=== PATIENT | female | born 1935 | race Caucasian/White ===

== ENCOUNTER 2023-10-09 20:58 | Inpatient (IN) | payer MEDICARE, SELFPAY ==
[2023-10-09 17:08] VITALS: BP 107/68
[2023-10-09 17:35] LABS: % Basophils 0.7 % (0-2); % Eosinophils 0.3 % (0-6); % Immature Granulocytes 0.4 % (0-0.5); % Lymphocytes 12.1 % (20.5-51.1); % Monocytes 8.4 % (1.7-9.3); % Neutrophils 78.1 % (42.2-75.2); Absolute Basophils 0.1 10^3/uL (0-0.2); Absolute Lymphocytes 1.2 10^3/uL (1.2-3.4); Absolute Monocytes 0.8 10^3/uL (0.1-0.6); Absolute Neutrophils 7.6 10^3/uL (1.4-6.5); Hematocrit 39.9 % (37.0-47.0); Mean Corp Hgb Conc. 35.1 g/dL (33.0-37.0); Mean Corpuscular Hgb 30.4 pg (27.0-31.0); Mean Corpuscular Volume 86.6 fL (81.0-99.0); Mean Platelet Volume 10.2 fL (7.4-10.4); Nucleated Red Blood Cells % 0 %; Platelet Count 264 10^3/uL (130-400); Red Blood Cell Count 4.61 10^6/uL (4.20-5.40); Red Cell Dist. Width 13.6 % (11.5-14.5); White Blood Cell Count 9.8 10^3/uL (4.8-10.8)
[2023-10-09 18:02] LABS: ALT (SGPT) 17 U/L (0-35); AST (SGOT) 19 U/L (14-36); Albumin 3.6 g/dl (3.5-5.0); Alkaline Phosphatase 68 U/L (38-126); Blood Urea Nitrogen 38 mg/dl (7-17); Calcium 9.6 mg/dl (8.4-10.2); Carbon Dioxide 22 mmol/L (22-30); Chloride 102 mmol/L (98-107); Glucose 208 mg/dl (70-99); Potassium 4.5 mmol/L (3.5-5.1); Sodium 130 mmol/L (135-145); Total Bilirubin 0.6 mg/dl (0.2-1.3); Total Protein 5.8 g/dl (6.3-8.2); eGFR 30.64
[2023-10-09 18:57] VITALS: BP 117/56
[2023-10-09 19:02] LABS: Urine Albumin 2+ (Neg - Trace); Urine Bilirubin Negative (Negative); Urine Character Slightly Cloudy (Clear); Urine Color Yellow; Urine Glucose Negative (Negative); Urine Ketone Negative (Negative); Urine Leukocyte 2+ (Negative); Urine Nitrite Negative (Negative); Urine Occult Blood 3+ (Negative); Urine Urobilinogen Negative (Neg - 1+)
[2023-10-09 19:13] LABS: Urine Squamous Cell 16-20 /LPF (Few)
[2023-10-09 19:14] LABS: Urine Bacteria Many (Negative); Urine White Cell 90-100 /HPF (0-5)
--- NOTE | 2023-10-09 19:53 | ED.GENMED ---
History of Present Illness
General
Chief Complaint: Change in Mental Status
Time Seen by Provider: 10/09/23 18:34
Travel History
Have you had any contact with someone who has COVID-19?: No
Do you have any symptoms of coronavirus? Fever > 100 degrees, chills, cough, shortness of breath, sore throat, loss of taste or smell, muscle aches, or headache?: No
History of Present Illness
History of Present Illness:
88-year-old female presents the emergency department with her daughters for evaluation of intermittent bouts of confusion and worsening urinary incontinence. Patient does wear depends but does not frequently change them due to frequency of
accidents. Patient denies any acute complaints and does not want to be in the hospital.
Past History
Past History
ED Past Medical History: HTN, Hypercholesterolemia, NIDDM and SD
ED Past Surgical History: Appendectomy, Orthopedic (Left leg surgery) and Other (Right-sided nephrectomy)
Social History
Tobacco: Non-smoker
Alcohol: None
Drug: None
Personal:
Living: alone
Family History
Family History: Other (reviewed and noncontributory)
Review of Systems
Review of Systems
Allergies reviewed?: Yes
All Other Systems: ROS reviewed and negative except as documented in HPI and ROS
Phy Exam
Physical Exam
Physical Exam:
GEN: Well appearing, NAD, WDWN
HEENT: Oral mucosa moist, no scleral icterus
Cardiac: Regular rate
Lung: No respiratory distress, no tachypnea
MSK: No gross deformity or injuries
Skin: Good color, no pallor or jaundice, no rashes
Neuro: AO x3, moves all extremities freely
Psych: Calm, cooperative
Course
Orders/Labs/Results
Orders:
Orders
10/09/23 17:29
CMP [Comprehensive Metabolic Panel] Urgent
Complete Blood Count/With Diff Urgent
10/09/23 18:35
Straight cath- Treatment ONCE
10/09/23 18:56
Urinalysis Reflex To Culture Urgent
Date Specimen was Collected: 10/09/23
Time Specimen was Collected: 18:48
Urine Microscopic Reflex Cult Urgent
Urine Culture Urgent
CARL Source: U
Specimen Description:
Date Specimen was Collected: 10/09/23
Time Specimen was Collected: 18:48
10/09/23 19:39
0.9% Sodium Chloride 1000 ml [Nss] 1,000 ml IV BOLUS
CefTRIAXone [Rocephin] 1,000 mg IV NOW STA
10/09/23 20:07
Admit/Transfer Patient As Directed
Co-Sign Provider:
Level of Care: Inpatient admission
Assign to:: Medical/Surgical
Physician / Group: lizeth
Diagnosis: uti, adelfo
Reason for Hospitalization: uti, adelfo
Expected length of stay greater than two midnights?: Yes
ELOS- Estimated Length of Stay in days: 2
I certify the patient meets the requirements for IP care: Yes
Code Status As Directed
Resuscitation Status: Do not resuscitate
Reached after discussion with pt or family/Healthcare POA: Yes
DNR Bracelet Application ONCE
Abnormal Lab Results
10/09/23 10/09/23
17:29 18:56
Absolute Neuts (auto) 7.6 H 10^3/uL
(1.4-6.5)
Absolute Monos (auto) 0.8 H 10^3/uL
(0.1-0.6)
Neutrophils % 78.1 H %
(42.2-75.2)
Lymphocytes % 12.1 L %
(20.5-51.1)
Sodium 130 L mmol/L
(135-145)
BUN 38 H mg/dl
(7-17)
Creatinine 1.6 H mg/dL
(0.6-1.0)
Glucose 208 H mg/dl
(70-99)
Total Protein 5.8 L g/dl
(6.3-8.2)
Ur Occult Blood Reflex 3+ A
(Negative)
Leukocyte Esterase Rfl 2+ A
(Negative)
Urine RBC 11-15 A /HPF
(0-2)
Urine WBC (Reflex) 90-100 A /HPF
(0-5)
Urine Bacteria (Reflex) Many A
(Negative)
Urine Albumin (Reflex) 2+ A
(Neg - Trace)
10/09/23 17:29
10/09/23 17:29
Vital Signs
Initial and Last Documented VS:
Initial Vital Signs
Temp Pulse Resp BP Pulse Ox
97.7 F 68 16 107/68 100
10/09/23 17:08 10/09/23 17:08 10/09/23 17:08 10/09/23 17:08 10/09/23 17:08
Last Documented Vital Signs
Temp Pulse Resp BP Pulse Ox
98.2 F 83 16 117/56 95
10/09/23 18:57 10/09/23 18:57 10/09/23 17:08 10/09/23 18:57 10/09/23 18:57
MDM/Problems Addressed
MDM/Problems Addressed:
Patient appears clinically well however she has evidence for dehydration given acute kidney injury, given the associated UTI we will treat this as an acute encephalopathy, will admit for IV antibiotics and IV fluids. No indication for imaging
*Critical Care Note
Total Time (30-74mins, 75-104mins- exclusive of procedures): Not Applicable
ED Attending Note
-
Portions of this chart may have been created with voice recognition software.� Occasional wrong word or��sound alike� substitutions may have occurred due to the inherent limitations of voice recognition software.
Discharge Plan
Departure
Patient Disposition: Admit
Date of Disposition: 10/09/23
Time of Disposition: 19:53
Presentation/result/management discussed w/ accepting MD/DO: Hospitalist
Discharge Problem:
Acute UTI, Acute kidney injury
Prescriptions:
No Action
metoprolol succinate 50 mg tablet extended release 24 hr
50 mg PO HS
lisinopril 20 mg tablet
20 mg PO DAILY
clopidogrel 75 mg tablet
75 mg PO HS
amlodipine 5 mg tablet
5 mg PO DAILY
simvastatin 40 mg tablet
40 mg PO HS
levothyroxine 75 mcg tablet
75 mcg PO DAILY
glimepiride 4 mg Tablet
4 mg PO DAILY
Referrals:
Juliocesar Espino MD [Family Provider] -
Interventions
Interventions:
*General Assessment Last Done: 10/09/23 20:00
*ED COVID-19 Vaccine History Last Done: 10/09/23 17:08
ED- Neurological Assessment Last Done: 10/09/23 19:44
Discharge Date and Time
Print Language: MOROCCAN
[2023-10-09] MEDS: NSS 1000 IV ×2 (20:01→22:45)
[2023-10-09] MEDS: ROCEPHIN 1000 MG IV (20:01)
--- NOTE | 2023-10-09 20:10 | HPS.HSE ---
Family Physician
-
Family Physician: Juliocesar Espino
Chief Complaint
-
Allergies
Allergy/AdvReac Type Severity Reaction Status Date / Time
No Known Allergies Allergy Verified 10/09/23 20:00
Home Medications
amlodipine 5 mg tablet 5 mg PO DAILY 12/05/21
clopidogrel 75 mg tablet 75 mg PO HS 12/05/21
levothyroxine 75 mcg tablet 75 mcg PO DAILY 12/05/21
lisinopril 20 mg tablet 20 mg PO DAILY 12/05/21
metoprolol succinate 50 mg tablet,extended release 24 hr 50 mg PO HS 12/05/21
simvastatin 40 mg tablet 40 mg PO HS 12/05/21
glimepiride 4 mg tablet 4 mg PO DAILY 10/09/23
History of Present Illness
88-year-old female past medical history of chronic diarrhea suspected IBS, coronary artery disease, hypertension, hypercholesteremia, diabetes, presenting with waxing and waning confusion and agitation for the past month. She has been having cloudy
urine and increased urinary frequency for the past few weeks. No abdominal pain or nausea or vomiting. She has chronic diarrhea sometimes up to 4 times a day which is watery which was thought to be due to IBS and she had constipation in the past.
She has not been eating well recently.
Smokes 6 cigarettes a day. Denies alcohol use.
Medical History
Past Medical History
Past Medical History: Reports Other (chronic diarrhea suspected IBS, coronary artery disease, hypertension, hypercholesteremia, diabetes,)
Past Surgical History: Reports Other ((Appendectomy, Orthopedic (Left leg surgery) and Other (Right-sided nephrectomy)))
Social History
Tobacco: Smoker
Alcohol: None
Drug: None
Family History
Family History: Not pertinent
Allergies / Home Medications
Allergies reflects when Allergies were last updated in [employer].
Home Medications with original date entered in [employer]
Allergy/Medication List:
Allergies
Allergy/AdvReac Type Severity Reaction Status Date / Time
No Known Allergies Allergy Verified 10/09/23 20:00
Home Medications
amlodipine 5 mg tablet 5 mg PO DAILY 12/05/21
clopidogrel 75 mg tablet 75 mg PO HS 12/05/21
levothyroxine 75 mcg tablet 75 mcg PO DAILY 12/05/21
lisinopril 20 mg tablet 20 mg PO DAILY 12/05/21
metoprolol succinate 50 mg tablet,extended release 24 hr 50 mg PO HS 12/05/21
simvastatin 40 mg tablet 40 mg PO HS 12/05/21
glimepiride 4 mg tablet 4 mg PO DAILY 10/09/23
Review of Systems
-
History Source: Patient
A 12 point ROS was completed and negative except as noted: Yes
Constitutional: Reports No Symptoms
EENT: Reports No Symptoms
Respiratory: Reports No Symptoms
Cardiac: Reports No Symptoms
Abdomen/GI: Reports See HPI
: Reports See HPI
Musculoskeletal: Reports No Symptoms
Skin: Reports No Symptoms
Neurological: Reports No Symptoms
Endocrine: Reports No Symptoms
Hematologic/Lymphatic: Reports No Symptoms
Psych: Reports No Symptoms
Physical Exam
Vital Signs
Vital Signs
Temp Pulse Resp BP Pulse Ox
98.2 F 83 16 117/56 95
10/09/23 18:57 10/09/23 18:57 10/09/23 17:08 10/09/23 18:57 10/09/23 18:57
Physical Exam
General: Well Developed, Well Nourished and No Apparent Distress
HEENT: NormoCephalic, Moist mucous membranes and Atraumatic
Respiratory: Clear
Cardiac: S1/S2 and Regular Rhythm; No Murmur or Rub
GI: Soft, Non Tender, Non Distended and Normal Bowel Sounds; No Organomegaly
Rectal: Deferred by Provider
Musculoskeletal: No Clubbing, No Cyanosis and No Edema
Skin: No Rash
Neuro: Nonfocal/grossly intact
Laboratory Results
-
10/09/23 17:29
10/09/23 17:29
Laboratory Results
Total Bilirubin 0.6 mg/dl (0.2-1.3) 10/09/23 17:29
AST 19 U/L (14-36) 10/09/23 17:29
ALT 17 U/L (0-35) 10/09/23 17:29
Alkaline Phosphatase 68 U/L (38-126) 10/09/23 17:29
Data Reviewed
-
Lab Data: Labs Reviewed by me
Old Records: Reviewed
Impression/Plan
-
IMPRESSION:
PLAN:
# Metabolic encephalopathy secondary to urinary tract infection
-Urine culture
-Ceftriaxone
# Acute kidney injury prerenal
# History of right-sided nephrectomy
-IV fluids
-Hold lisinopril
# Hyponatremia secondary to decreased p.o. intake
-Monitor with IV fluids
# Chronic diarrhea suspected secondary to IBS
-No diarrhea today
-Imodium as needed
Coronary artery disease
-Continue Plavix
Essential hypertension
-Continue amlodipine
-Continue metoprolol
Type 2 diabetes
-Hold glimepiride
-Insulin sliding scale
Hypercholesterolemia
-Continue statin
Hypothyroidism
-Continue levothyroxine
Active smoker
DNR/DNI
DVT prophylaxis heparin
Regular diet
[2023-10-09 22:08] VITALS: BP 120/81; BMI 19.8
[2023-10-09] MEDS: TOPROL XL 50 MG PO (22:45)
[2023-10-09] MEDS: PLAVIX 75 MG PO (22:45)
--- NOTE | 2023-10-09 22:51 | PTCARENOTE ---
received pt from ED via stretcher. Pt AAOx3, forgetful, no complaints of pain at this time. VSS. Oriented pt to floor, call fierro within reach
[2023-10-10] MEDS: SYNTHROID 75 MCG PO (04:00)
[2023-10-10 07:49] LABS: % Basophils 0.4 % (0-2); % Eosinophils 0.6 % (0-6); % Immature Granulocytes 0.3 % (0-0.5); % Monocytes 9.8 % (1.7-9.3); % Neutrophils 79.9 % (42.2-75.2); Absolute Basophils 0.1 10^3/uL (0-0.2); Absolute Eosinophils 0.1 10^3/uL (0-0.7); Absolute Lymphocytes 1.1 10^3/uL (1.2-3.4); Absolute Monocytes 1.2 10^3/uL (0.1-0.6); Absolute Neutrophils 9.4 10^3/uL (1.4-6.5); Hemoglobin 13.6 g/dL (12.0-16.0); Mean Corp Hgb Conc. 32.4 g/dL (33.0-37.0); Mean Corpuscular Hgb 29.7 pg (27.0-31.0); Mean Corpuscular Volume 91.7 fL (81.0-99.0); Mean Platelet Volume 10.5 fL (7.4-10.4); Nucleated Red Blood Cells % 0 %; Platelet Count 253 10^3/uL (130-400); Red Blood Cell Count 4.58 10^6/uL (4.20-5.40); Red Cell Dist. Width 13.8 % (11.5-14.5); White Blood Cell Count 11.7 10^3/uL (4.8-10.8)
[2023-10-10 08:06] LABS: Glucose - Point of Care 107 mg/dl (70-99)
[2023-10-10 08:27] LABS: ALT (SGPT) 17 U/L (0-35); AST (SGOT) 23 U/L (14-36); Albumin 3.5 g/dl (3.5-5.0); Alkaline Phosphatase 72 U/L (38-126); Blood Urea Nitrogen 31 mg/dl (7-17); Calcium 9.3 mg/dl (8.4-10.2); Carbon Dioxide 19 mmol/L (22-30); Chloride 107 mmol/L (98-107); Estimated Creatinine Clearance 25 ml/min; Glucose 91 mg/dl (70-99); Potassium 3.7 mmol/L (3.5-5.1); Sodium 136 mmol/L (135-145); Total Bilirubin 0.5 mg/dl (0.2-1.3); Total Protein 5.6 g/dl (6.3-8.2); eGFR 43.27
[2023-10-10 08:32] LABS: Glycohemoglobin (HgbA1c) 6.5 % (4.0-5.6)
[2023-10-10] MEDS: NOVOLOG FLEXPEN-LOW RESISTANCE SC (08:33)
[2023-10-10] MEDS: NSS 1000 IV ×2 (08:36→23:42)
[2023-10-10] MEDS: HEPARIN 5000 UNITS SC ×2 (08:37→23:43)
[2023-10-10] MEDS: NORVASC 5 MG PO (08:37)
[2023-10-10 08:44] VITALS: BP 133/87
--- NOTE | 2023-10-10 10:50 | W.PN.HOSP.TC ---
Today's Communication/Plan
-
cont abx
f/u cultures
ivf
Assessment / Plan
Assessment / Plan
88-year-old female past medical history of chronic diarrhea suspected IBS, coronary artery disease, hypertension, hypercholesteremia, diabetes, presenting with waxing and waning confusion and agitation for the past month. Found to have UTI, MACARENA.
# Metabolic encephalopathy secondary to urinary tract infection
-Urine culture, f/u
-Ceftriaxone
# Acute kidney injury prerenal
# History of right-sided nephrectomy
-IV fluids
-Hold lisinopril
-improving
# Hyponatremia secondary to decreased p.o. intake
-Monitor with IV fluids
-resolved
# Chronic diarrhea suspected secondary to IBS
-No diarrhea today
-Imodium as needed
Coronary artery disease
-Continue Plavix
Essential hypertension
-Continue amlodipine
-Continue metoprolol
Type 2 diabetes
-Hold glimepiride
-Insulin sliding scale
Hypercholesterolemia
-Continue statin
Hypothyroidism
-Continue levothyroxine
Active smoker
DNR/DNI
DVT prophylaxis heparin
Regular diet
Anticipated Discharge: 24 - 48 hours
Subjective/Interval History
-
Date of Service: October 10, 2023
AAOx2 today
Objective Data
-
Labs:
Laboratory Results
10/10/23
07:14
WBC 11.7 H
Hgb 13.6
Hct 42.0
Plt Count 253
Sodium 136
Potassium 3.7
Chloride 107
Carbon Dioxide 19 L
BUN 31 H
Creatinine 1.2 H
Glucose 91
Calcium 9.3
Total Bilirubin 0.5
AST 23
ALT 17
Alkaline Phosphatase 72
Vital Signs:
Vital Signs
Temp Pulse Resp BP Pulse Ox
97.5 F 94 18 133/87 96
10/10/23 08:44 10/10/23 08:44 10/10/23 08:44 10/10/23 08:44 10/10/23 08:44
Review of Systems
-
History Source: Patient
All other systems: Not reviewed unless documented
Physical Exam
-
General: Well Developed and Well Nourished
HEENT: Normocephalic and Atraumatic
Respiratory: Clear to Auscultation; Negative Wheezes, Rales or Rhonchi
Cardiac: Regular Rhythm and S1/S2
Genito-urinary: No Costovertebral Tender
Neuro: AO x 3
Hematologic / Lymphatic: No Lymphadenopathy
Psych: Calm
Data Reviewed
-
Labs: Labs Reviewed by me
--- NOTE | 2023-10-10 11:53 | CM ---
Patient seen bedside.
IA completed.
Patient lives alone in a 2 story home with bed and bath on the second floor.
Patient does not drive.
patient has daughters in the are who will assist her.
patient independent prior to admission without assistive devices.
patient has not had VN or skilled rehab.
PCP; Dr Espino
Pharmacy: [facility]
Plan: home no needs anticiapte.
[2023-10-10 12:27] LABS: Glucose - Point of Care 204 mg/dl (70-99)
[2023-10-10] MEDS: NOVOLOG FLEXPEN-LOW RESISTANCE 2 UNITS SC (12:57)
[2023-10-10 14:29] VITALS: BMI 19.8
[2023-10-10 15:34] VITALS: BP 127/73
[2023-10-10 17:26] LABS: Glucose - Point of Care 156 mg/dl (70-99)
[2023-10-10] MEDS: NOVOLOG FLEXPEN-LOW RESISTANCE 1 UNITS SC (17:26)
[2023-10-10 21:40] LABS: Glucose - Point of Care 104 mg/dl (70-99)
[2023-10-10] MEDS: ROCEPHIN 1000 MG IV (23:43)
[2023-10-10] MEDS: STERILE WATER FOR INJECTION 10 ML IV (23:43)
[2023-10-10] MEDS: PLAVIX 75 MG PO (23:44)
[2023-10-10] MEDS: TOPROL XL 50 MG PO (23:44)
[2023-10-10] MEDS: LIPITOR 20 MG PO (23:44)
[2023-10-10 23:59] VITALS: BP 141/84
[2023-10-11 06:00] VITALS: BMI 19.6
[2023-10-11] MEDS: SYNTHROID 75 MCG PO (06:04)
[2023-10-11 07:06] VITALS: BP 126/68
[2023-10-11 07:19] LABS: Hematocrit 42.1 % (37.0-47.0); Hemoglobin 14.3 g/dL (12.0-16.0); Mean Corpuscular Volume 88.4 fL (81.0-99.0); Mean Platelet Volume 10.1 fL (7.4-10.4); Platelet Count 254 10^3/uL (130-400); Red Blood Cell Count 4.76 10^6/uL (4.20-5.40); Red Cell Dist. Width 13.5 % (11.5-14.5); White Blood Cell Count 14.6 10^3/uL (4.8-10.8)
[2023-10-11 07:47] LABS: Blood Urea Nitrogen 23 mg/dl (7-17); Calcium 9.5 mg/dl (8.4-10.2); Carbon Dioxide 23 mmol/L (22-30); Chloride 105 mmol/L (98-107); Estimated Creatinine Clearance 30 ml/min; Glucose 85 mg/dl (70-99); Potassium 3.6 mmol/L (3.5-5.1); Sodium 136 mmol/L (135-145); eGFR 53.85
[2023-10-11 07:59] LABS: Glucose - Point of Care 96 mg/dl (70-99)
[2023-10-11] MEDS: NOVOLOG FLEXPEN-LOW RESISTANCE SC (10:23)
[2023-10-11] MEDS: HEPARIN 5000 UNITS SC (10:26)
[2023-10-11] MEDS: NORVASC 5 MG PO (10:26)
[2023-10-11] MEDS: FLUSH (NSS) 1 FLUSH IV (10:27)
[2023-10-11 11:21] VITALS: BP 130/69; PULSE 69
--- NOTE | 2023-10-11 11:57 | W.PN.HOSP.TC ---
Addendum entered and electronically signed by Mohan Brown MD 10/12/23 15:36:
[id number]
Original Note:
Today's Communication/Plan
-
F/u CBC, BMP in 1 week
Cephalexin x 5 days
F/u PCP outpatient
Assessment / Plan
Assessment / Plan
88-year-old female past medical history of chronic diarrhea suspected IBS, coronary artery disease, hypertension, hypercholesteremia, diabetes, presenting with waxing and waning confusion and agitation for the past month. Found to have UTI, MACARENA.
# Metabolic encephalopathy secondary to urinary tract infection
-improving with abx
-F/u outpatient for further testing
#UTI, E-Coli
-ceftriaxone - switch to cephalexin 500mg q8h x 5 days
# Acute kidney injury prerenal
# History of right-sided nephrectomy
-hold lisinopril - can resume tomorrow
-resolved
# Hyponatremia secondary to decreased p.o. intake
-Monitor with IV fluids
-resolved
# Chronic diarrhea suspected secondary to IBS
-No diarrhea today
-Imodium as needed
Coronary artery disease
-Continue Plavix
Essential hypertension
-Continue amlodipine
-Continue metoprolol
Type 2 diabetes
-Hold glimepiride
-Insulin sliding scale
Hypercholesterolemia
-Continue statin
Hypothyroidism
-Continue levothyroxine
Active smoker
DNR/DNI
DVT prophylaxis heparin
Regular diet
More than 30 minutes spent in discharge including
Final examination of the patient
Summarizing hospital stay
Instructions for continuing care to all relevant caregivers
Preparation of discharge records, prescriptions, and referral forms
Total time spent (35 in minutes):
Anticipated Discharge: Today
Subjective/Interval History
-
Date of Service: October 11, 2023
no acute events overnight
Objective Data
-
Labs:
Laboratory Results
10/11/23 10/11/23
07:10 11:47
WBC 14.6 H Pending
Hgb 14.3 Pending
Hct 42.1 Pending
Plt Count 254 Pending
Sodium 136
Potassium 3.6
Chloride 105
Carbon Dioxide 23
BUN 23 H
Creatinine 1.0
Glucose 85
Calcium 9.5
Vital Signs:
Vital Signs
Temp Pulse Resp BP Pulse Ox
98.1 F 61 18 126/68 98
10/11/23 07:06 10/11/23 10:26 10/11/23 07:06 10/11/23 10:26 10/11/23 10:22
I&O
10/10/23 10/11/23 10/12/23
06:59 06:59 06:59
Intake Total 720 / 720
Balance 720 / 720
Review of Systems
-
History Source: Patient
All other systems: Not reviewed unless documented
Data Reviewed
-
Labs: Labs Reviewed by me
--- NOTE | 2023-10-11 12:01 | W.DS.TRANS ---
DC Summary - Intermission Coordinator
-
Discharge Instructions:
Discharge Diagnosis/Procedures Metabolic encephalopathy secondary to urinary
tract infection
Acute kidney injury
Diet Low Fat,Low Cholesterol
Activity As tolerated
Blood Work cbc, bmp in 1 week with pcp
Instructions:
Stand-Alone Forms:
Changes to Home Medications: Yes
Discharge Medications:
DC Medications w/original date entered in [employer]
amlodipine 5 mg tablet 5 mg PO DAILY Blood Pressure 12/05/21
clopidogrel 75 mg tablet 75 mg PO HS Blood Clot Prevention/Tx 12/05/21
levothyroxine 75 mcg tablet 75 mcg PO DAILY Thyroid 12/05/21
lisinopril 20 mg tablet 20 mg PO DAILY Blood Pressure 12/05/21
metoprolol succinate 50 mg tablet,extended release 24 hr 50 mg PO HS Heart Disease/Condition 12/05/21
simvastatin 40 mg tablet 40 mg PO HS High Cholesterol 12/05/21
glimepiride 4 mg tablet 4 mg PO DAILY Diabetes 10/09/23
cephalexin 500 mg capsule 500 mg PO Q8H 5 days #15 caps 10/11/23
Home Medication Changes
cephalexin 500 mg capsule 500 mg PO Q8H 5 days #15 caps 10/11/23
Pending Results: No
[2023-10-11 12:10] LABS: Hematocrit 38.3 % (37.0-47.0); Hemoglobin 13.5 g/dL (12.0-16.0); Mean Corp Hgb Conc. 35.2 g/dL (33.0-37.0); Mean Corpuscular Hgb 30.6 pg (27.0-31.0); Mean Corpuscular Volume 86.8 fL (81.0-99.0); Mean Platelet Volume 10.2 fL (7.4-10.4); Platelet Count 241 10^3/uL (130-400); Red Blood Cell Count 4.41 10^6/uL (4.20-5.40); Red Cell Dist. Width 13.6 % (11.5-14.5); White Blood Cell Count 13.8 10^3/uL (4.8-10.8)
[2023-10-11 12:20] LABS: Glucose - Point of Care 221 mg/dl (70-99)
--- NOTE | 2023-10-11 12:24 | CM ---
Patient seen at bedside, IMM completed with patient and signed form placed on chart. CM called to patient daughter and updated her regarding patient declining VN, Patient daughter given information about [facility], and confirmed that they daughters
provided food and care. patient has not left her home except for physician appointments for several years. CM will continue to follow for discharge planning needs.
Plan; home with no needs at this time
[2023-10-11] MEDS: NOVOLOG FLEXPEN-LOW RESISTANCE 2 UNITS SC (12:35)
== END 2023-10-11 15:40 | disposition home or self-care (01) | DRG 682 ==
LOC: 4 EAST ACU 20:58
PROVIDERS: Physician Assistant; ADMITTING PHYSICIAN Hospitalist; ATTENDING PHYSICIAN Internal Medicine; EMERGENCY PHYSICIAN Emergency Medicine; FAMILY PHYSICIAN Family Medicine
DX: N17.9 Acute kidney failure, unspecified (principal); G93.41 Metabolic encephalopathy; N39.0 Urinary tract infection, site not specified; E87.1 Hypo-osmolality and hyponatremia; Z66 Do not resuscitate; F17.210 Nicotine dependence, cigarettes, uncomplicated; Z79.02 Long term (current) use of antithrombotics/antiplatelets; I25.10 Atherosclerotic heart disease of native coronary artery without angina pectoris; I10 Essential (primary) hypertension; E11.9 Type 2 diabetes mellitus without complications; E78.00 Pure hypercholesterolemia, unspecified; E03.9 Hypothyroidism, unspecified; K52.9 Noninfective gastroenteritis and colitis, unspecified
CPT/HCPCS: 80048; 80053; 81003; 81015; 82962; 83036; 85025; 85027; 87086; 87088; 87186; 96361; 96374; 97162; 99285